=== PATIENT | female | born 1965 | race Two or more races ===

== ENCOUNTER 2021-06-01 16:00 | Outpatient (REF) | payer OTHER, SELFPAY ==
--- NOTE | ~2021-06-01 | XR_ITS ---
EXAMINATION: XR SINUSES CLINICAL INFORMATION: Sinusitis COMPARISON: None TECHNIQUE: 4 views of the paranasal sinuses FINDINGS: Paranasal sinuses appear clear without air-fluid levels. No fractures are identified. No radiodense foreign bodies. XR/XR sinus min 3V IMPRESSION: Normal paranasal sinus study.
== END 2021-06-01 16:01 | disposition home or self-care (01) ==
LOC: HO.XRAY 16:00
PROVIDERS: Visit Provider Otolaryngology
DX: J32.9 Chronic sinusitis, unspecified (principal)
CPT/HCPCS: 70220